=== PATIENT | male | born 1990 | race Two or more races ===

== ENCOUNTER 2019-04-12 08:11 | Outpatient (CLI) | payer OTHER | END 2019-04-12 23:59 | disposition home or self-care (01) | LOC: RAD 08:11 | PROVIDERS: ATTEND Physician Assistant Medical | DX: M25.431 Effusion, right wrist (principal); G89.29 Other chronic pain; K21.9 Gastro-esophageal reflux disease without esophagitis; Z79.899 Other long term (current) drug therapy ==